=== PATIENT | male | born 1985 | race Hispanic/Latino ===

== ENCOUNTER → 2022-11-25 | Outpatient (CLI) | payer OTHER ==
[~2022-11-25] VITALS: Ht 27.9 cm; Wt 180.1 kg
== END | disposition home or self-care (01) ==
LOC: DTH 08:20
PROVIDERS: ATTEND Surgery
DX: Z71.3 Dietary counseling and surveillance (principal); E66.01 Morbid (severe) obesity due to excess calories; I10 Essential (primary) hypertension; E78.00 Pure hypercholesterolemia, unspecified; K21.9 Gastro-esophageal reflux disease without esophagitis; G47.33 Obstructive sleep apnea (adult) (pediatric); Z68.43 Body mass index [BMI] 50.0-59.9, adult
CPT/HCPCS: 97802

== ENCOUNTER → 2022-12-17 | Outpatient (CLI) | payer OTHER | END | disposition home or self-care (01) | LOC: DTH 07:49 | PROVIDERS: ATTEND Surgery | DX: Z71.3 Dietary counseling and surveillance (principal); E66.01 Morbid (severe) obesity due to excess calories; I10 Essential (primary) hypertension; E78.00 Pure hypercholesterolemia, unspecified; K21.9 Gastro-esophageal reflux disease without esophagitis; G47.33 Obstructive sleep apnea (adult) (pediatric); Z68.43 Body mass index [BMI] 50.0-59.9, adult | CPT/HCPCS: 97803 ==

== ENCOUNTER → 2023-01-15 | Outpatient (CLI) | payer OTHER | END | disposition home or self-care (01) | LOC: DTH 07:54 | PROVIDERS: ATTEND Surgery | DX: Z71.3 Dietary counseling and surveillance (principal); I10 Essential (primary) hypertension; E78.00 Pure hypercholesterolemia, unspecified; K21.9 Gastro-esophageal reflux disease without esophagitis; E66.01 Morbid (severe) obesity due to excess calories; Z68.43 Body mass index [BMI] 50.0-59.9, adult | CPT/HCPCS: 97803 ==

== ENCOUNTER → 2025-03-13 | Outpatient (CLI) | payer OTHER ==
--- NOTE | 2025-03-13 10:41 | HMCIMG ---
FINDINGS: There are no comparison exams. Routine upper GI exam was performed. The patient was given effervescent crystals in order to distend the esophagus and stomach. The patient swallowed barium and multiple images of the esophagus and stomach were obtained in various projections. The esophagus distends normally, without any persistent stricturing or narrowing. There is normal esophageal peristalsis and emptying. The gastroesophageal junction is preserved. There is no evidence of esophagitis. No mucosal abnormality seen. No gastroesophageal reflux was seen. No hiatal hernia was demonstrated. The stomach distends well. No mucosal abnormalities are seen to suggest ulcer or cancer. No gastritis is evident. There is no extravasation. There is no evidence of gastric outlet obstruction. The duodenum is normal in appearance. There is no evidence of inflammatory change to suggest peptic ulcer disease. IMPRESSION: Normal examination. No gastroesophageal reflux seen.
== END | disposition home or self-care (01) ==
LOC: RAH 09:46
PROVIDERS: ATTEND Surgery
DX: R12 Heartburn (principal)
CPT/HCPCS: 74240